=== PATIENT | female | born 1980 | race African-American/Black ===

== ENCOUNTER 2017-04-03 15:03 | Emergency (ER) | payer OTHER ==
[~2017-04-03 15:03] MED LIST: BIRTH CONTROL PILL PO; DARVOCET-N 1001 TAB PO; DEPO-PROVER150 MG/ML INJ; DOXYCYCLINE PO; DOXYCYCLINE150 MG PO; FLEXERIL PO; IBUPROFEN PO; KEFLEX500 M1 PO; PAXIL PO; PERCOCET5/325 PO; PRENATAL VITAMI1 TA3; RITE-AID PHARMACY; VICODIN 5/500 T1 TAB PO; ZITHROMAX PO
[2017-04-03 15:43] LABS: URINE SOURCE CLEAN CATCH
[2017-04-03 15:46] LABS: URINE APPEARANCE CLEAR; URINE BILIRUBIN NEG (NEG); URINE BLOOD 2+ (NEG); URINE COLOR YELLOW; URINE GLUCOSE NEG (NEG); URINE KETONE NEG (NEG); URINE LEUKOCYTE ESTERASE 1+ (NEG); URINE NITRATE NEG (NEG); URINE PH 6.5 (5-8); URINE PROTEIN NEG (NEG); URINE SPECIFIC GRAVITY 1.019 (1.003-1.035); URINE UROBILINOGEN 0.2 MG/DL (NEG)
[2017-04-03 15:49] LABS: CULTURE INDICATED? YES; URINE BACTERIA AUWI 1+ (NEGATIVE); URINE SQUAMOUS EPITHELIAL CELL OCC /[HPF]; UWBCS1 AUWI 25-50 (0-5)
[2017-04-03 16:31] LABS: BASOPHIL% 0.4 % (0-2.5); EOSINOPHIL# 0.4 X10e3 (0-0.7); EOSINOPHIL% 4.3 % (0.0-7.0); HEMATOCRIT 26.1 % (35.0-45.0); HEMOGLOBIN 7.9 gm/dL (12.0-16.0); LYMPHOCYTE# 2.3 X10e3 (1.0-3.5); LYMPHOCYTE% 27.7 % (17.0-45.0); MEAN CELL VOLUME 69.7 FL (83-96); MEAN CORPUSCULAR HEMOGLOBIN 21.2 PG (28-34); MEAN CORPUSCULAR HGB CONC 30.4 g/dL (30-36); MEAN PLATELET VOLUME 6.6 FL (6.5-11.5); MONOCYTE# 0.5 X10e3 (0-1.0); MONOCYTE% 5.5 % (3.0-12.0); NEUTROPHIL# 5.2 X10e3 (1.5-7.1); NEUTROPHIL% 62.1 % (40-75); PLATELET COUNT 517 X10e3 (140-420); RED BLOOD COUNT 3.75 X10e (3.90-5.30); RED CELL DISTRIBUTION WIDTH 22.1 % (11.0-15.5); WHITE BLOOD COUNT 8.4 X10e3 (4.0-10.5)
[2017-04-03 16:32] LABS: DIFF IND YES
[2017-04-03 16:55] LABS: ALBUMIN SERUM 3.9 g/dL (3.5-5.0); BILIRUBIN,TOTAL 0.3 mg/dL (0.2-2.0); CREATININE SERUM 0.4 mg/dL (0.6-1.4); GLOM FILT RATE Estimated 153.2 mL/min (>60); PROTEIN TOTAL SERUM 7.6 g/dL (6.0-8.3)
[2017-04-03 17:26] LABS: NUCLEATED RED BLOOD CELL 1 /100 (0)
[2017-04-03 17:27] LABS: PLATELET ESTIMATE INCREASED (NORMAL)
[2017-04-03 17:28] LABS: TARGET CELLS MOD; TEAR DROP CELLS PRESENT
[2017-04-05 23:29] LABS: CHLAMYDIA TRACH Not Detected (Not Detected); N GONOR Not Detected (Not Detected)
== END 2017-04-03 19:05 | disposition home or self-care (01) ==
LOC: CED 15:03 → CFTX 15:03
PROVIDERS: Nurse Practitioner
DX: A59.01 Trichomonal vulvovaginitis (principal); N39.0 Urinary tract infection, site not specified; D64.89 Other specified anemias; Z91.041 Radiographic dye allergy status
CPT/HCPCS: 36415; 80053; 81003; 84703; 85025; 87086; 87491; 87591; 87808; 87905; 96372; 99284; J0696